=== PATIENT | female | born 1975 | race Caucasian/White ===

== ENCOUNTER 2017-01-07 20:00 | Emergency (ER) | payer OTHER ==
[~2017-01-07] VITALS: Ht 175.3 cm; Wt 71.6 kg
[~2017-01-07 20:00] MED LIST: ALEVE220 MG PO; BENTYL10 MG PO; Celestone IM; ENDOCET 5-3251 EACH PO; ENULOSE10 GM/15 M PO; EPIPEN ADU0.3 MG/0.3 IM; HYCODAN SYRUP480 ML PO; LACTATED RING1000 ML IV; MEDROL DOSEPAK4 MG PO; Motrin PO; NATALCARE RX1 TABLE1 PO; PREDNISONE20 MG PO; PROCARDIA20 MG PO; TRIVORA-281 EACH PO; ULTRAM50 MG PO; VENTOLIN HFA18 GM IH
[2017-01-07 22:44] LABS: HEMATOCRIT 38.1 % (36.0-46.0); MCH 32.6 PG (29.0-34.0); MCHC 34.4 G/DL (30.0-36.0); MCV 94.8 FL (83-99); MEAN PLAT.VOLUME 9.9 uM^3 (9.5-12.4); PLATELET COUNT 195 K/uL (156-360); RBC DIS.WIDTH-SD 41.9 % (39-53); RED BLOOD COUNT 4.02 M/uL (3.80-5.20); WHITE BLOOD COUNT 8.7 K/uL (4.1-10.2)
[2017-01-07 22:54] LABS: CHLORIDE 107 mEq/L (99-109); POTASSIUM 3.5 mEq/L (3.7-5.4); SODIUM 138 mEq/L (136-147)
[2017-01-07 22:56] LABS: GLUCOSE 89 mg/dL (70-99)
[2017-01-07 22:57] LABS: ANION GAP 9 MEQ/L (2-14)
[2017-01-07 23:00] LABS: GFR ESTIMATE (CALCULATED) > 59 mL/min/; UREA NITROGEN (BUN) 10 mg/dL (9-23)
[2017-01-07 23:11] LABS: QUANTITATIVE HCG < 4.0 MIU/ML
[2017-01-08] MEDS ORDERED: ZANAFLEX2 MG PO (01:29)
[2017-01-08] MEDS ORDERED: NORCO 5/3251 TABLET PO (01:29)
[2017-01-08 02:21] VITALS: BP 90/61
== END 2017-01-08 02:24 | disposition home or self-care (01) ==
LOC: EME 20:00
PROVIDERS: Emergency Medicine
DX: S16.1XXA Strain of muscle, fascia and tendon at neck level, initial encounter (principal); S06.0X0A Concussion without loss of consciousness, initial encounter; M25.511 Pain in right shoulder; V49.40XA Driver injured in collision with unspecified motor vehicles in traffic accident, initial encounter; Z88.0 Allergy status to penicillin; Z88.8 Allergy status to other drugs, medicaments and biological substances
CPT/HCPCS: 70450; 70498; 72125; 73030; 80048; 84702; 85027; 99281; 99284; J1200; J1885; J2405; J2930; J3010; J7030

== ENCOUNTER 2017-01-11 07:56 | Emergency (ER) | payer OTHER ==
[~2017-01-11] VITALS: Ht 175.3 cm; Wt 71.8 kg
[~2017-01-11 07:56] MED LIST changes: +NORCO 5/3251 TABLET PO; +ZANAFLEX2 MG PO
[2017-01-11 12:38] VITALS: BP 115/78
== END 2017-01-11 12:43 | disposition home or self-care (01) ==
LOC: EME 07:56
DX: S06.0X0D Concussion without loss of consciousness, subsequent encounter (principal); V43.02XD Car driver injured in collision with other type car in nontraffic accident, subsequent encounter; H91.93 Unspecified hearing loss, bilateral; Z88.0 Allergy status to penicillin
CPT/HCPCS: 70551; 99281; 99284